=== PATIENT | male | born 1960 | race Caucasian/White ===

== ENCOUNTER 2024-07-30 08:45 | Day surgery (SDC) | payer OTHER, SELFPAY ==
[2024-07-26 12:04] VITALS: BMI 25.0
--- OUTSIDE RECORDS SUMMARY | 2024-07-29 16:27 | XMS_ITS ---
Author Organization [facility] Address [address] [place] [phone] Care Team Providers Care Assistant Project Engineer Name Role Phone JOLENE LIRA, MEGAN Primary Care Provider Curtis Farah Jr [phone] REASON FOR VISIT rescheduled todays appointment Encounters Encounter Location Date Provider Diagnosis [facility] [address] [place] [phone] 04/03/2024 Curtis Murrieta Jr Plan Of Treatment Next Appt Details Provider Name:Curtis cortes Jr, 07/30/2024 10:40:00 AM, [address] [place] [address], [phone], Progress Notes * ALCIRA MERRITTDOB:1960 ( 63 yo M)Acc No.[id number]:04/03/2024 Patient:?ALCIRA MERRITT :1960???Age:63 Y???Sex:Male Address:[address] [place] [address], [place] [address] * true * Date:? Generated for Kevini danita/Pedro/eTransmitting on:?07/29/2024 04:27 PM EDT
--- OUTSIDE RECORDS SUMMARY | 2024-07-29 16:27 | XMS_ITS | Continuity of Care Document ---
Author Name [facility] Organization [facility] Care Team Providers Care Fundraising Assistant Name Role Phone [facility] Unavailable Unavailable Problems Combined list of problems from Department of Defense and Veterans Affairs facilities. It does not include entries that were removed or entered in error. Problem Status Onset Date Problem Type Date of Resolution Comments Source HTN - Hypertension ([facility] [id number]) Active Condition [facility] [place] [facility] Diagnosis: ICD-10-CM I10 Essential (primary) hypertension Active Diagnosis [facility] Diagnosis: ICD-10-CM Z13.6 Encounter for screening for cardiovascular disorders Active Diagnosis [facility] Medications Combined list of outpatient medications from Department of Defense and Veterans Affairs facilities.Medications provided include 1) outpatient medications from the last 15 months, and 2) patient-reported medications. Medication Details Route Status Patient Instructions Prescription Expires Prescription Number Last Dispense Date Ordering Provider Order Date Order Qty Source TAMSULOSIN HCL 0.4MG CAP TAKE ONE CAPSULE BY MOUTH ONCE DAILY FOR ENLARGED PROSTATE ORAL 02/14/2024 [id number] Noel FERNÁNDEZ 2023 90 IELD Immunizations Combined list of available immunizations from the Department of Defense and Veterans Affairs facilities. Immunization Series Date Given Administered By Site Reaction Lot Number CVX Code Drug Mid Level Java Developer Status Comments Source TDAP 2023 HUMBERTO RAMIREZ RIGHT DELTO ID [id number] complet ed IELD Vital Signs Combined list of inpatient and outpatient Vital Signs from Department of Defense and Veterans Affairs, ranging from 12 months to all on record, depending upon the facility. Vital Sign Value Date Comments Source SYSTOLIC BLOOD PRESSURE 167 11/29/19 24 15:17:00 [facility] [place] [facility] DIASTOLIC BLOOD PRESSURE 95 024 15:17:00 [facility] [place] [facility] PULSE 52 11/29/2023 15:17:00 [facility] [place] [facility] SYSTOLIC BLOOD PRESSURE 160 11/16/19 24 03:30:00 [facility] DIASTOLIC BLOOD PRESSURE 68 2 024 03:30:00 [facility] PULSE OXIMETRY 95 11/16/2023 03:30:00 [facility] WEIGHT 173 11/16/2023 03:30:00 [facility] BMI 26 kg/m2 11/16/2023 03:30:00 [facility] PAIN 1 11/16/2023 03:30:00 [facility] HEIGHT 69 11/16/2023 03:30:00 [facility] TEMPERATURE 98 11/16/2023 03:30:00 [facility] PULSE 62 11/16/2023 03:30:00 [facility] RESPIRATION 17 11/16/2023 03:30:00 [facility] Encounters Combined list of: 1) Encounters from Department of Veterans Affairs facilities going backup to the last 18 months, not all [place] inpatient encounters are included; 2) Encounters from the Department of [facility] facilities going backup to 280 months. Location Location Details Encounter Type Encounter Number Reason For Visit Attending Provider ADM Date DC Date Status Disposition Source [facility] [place] [facility] Outpatient Encounter [id number] 08/14 [facility] [place] [facility] [place] [facility] Outpatient Encounter [id number] 08/22 [place] [facility] [place] [facility] [facility] Outpatient Encounter [id number] 11/15 [place] [facility] [place] [facility] O/P EST LOW 20 MIN [id number] Diagnos is: ICD-10- CM I10 Essenti al (primar y) hyperte nsion FERNÁNDEZ,DA VID A 11/15 [facility] IELD [facility] ELECTROCAR DIOGRAM REPORT [id number] Diagnos is: ICD-10- CM Z13.6 Encount er for screeni ng for cardiov ascular disorde rs MICHAEL,MALORIE J 11/15 [facility] LD OFF/OP EST AUGUST X REQ PHY/QHP [id number] Diagnos is: ICD-10- CM I10 Essenti al (primar y) hyperte ADRI Carter 11/28 [facility] [place] [facility] Outpatient Encounter [id number] 12/06 [facility] [place] [facility] [facility] [place] [facility] Outpatient Encounter [id number] 07/01 [facility] [place] [facility] [facility] [place] [facility] Outpatient Encounter [id number] 07/18 [facility] [place] [facility] Social History Combined list of available smoking, tobacco, and other social history from Department of Defense and Veterans Affairs facilities. Social History Type Response Date Comment [facility] e Tobacco [facility] FOR[facility] 024 [facility] History of tobacco use PA-TOBACCO QUIT 1 5 YRS OR MORE 11/16/2023 [facility] Plan of Care List of future care activities from Department of Veterans Affairs facilities. Additional future care activities may be listed in the Assessment and Plan section. Date/Time Care Activity Care Activity Detail Facili ty 07/29/2024 AMBULATORY - MEDICINE AMBULATORY - MEDICI [facility] Advance Directives List of completed, amended, or rescinded Advance Directives on record at Department of Veterans Affairs facilities. An actual copy of the Directive is not included. Date Advance Directive Provider Source 08/23/2023 ADVANCE DIRECTIVE KIMANI DOMINGUEZ [facility]
--- OUTSIDE RECORDS SUMMARY | 2024-07-29 16:27 | XMS_ITS ---
Author Name [facility] Organization [facility] [place] [place] Address [address] [place] [address] Care Team Providers Care Multiple Knife Edge Trimmer Operator Name Role Phone MEGAN FERNÁNDEZ Primary Care Provider Unavailabl e Selected Encounter This section includes the information on record at [place] for the Encounter. Date/Time Encounter Type Encounter Description Reason Pro vider Source Jul 29, 2024 12:00 AM Outpatient Encounter EVENT (HISTORICAL) I[facility] Encounter Template Text not used by [place] Plan of Treatment: Future Appointments (+ 6 months) and Future Tests (+/- 45 days) The Plan of Treatment section includes future care activities for the patient from all [place] treatmentfacilities. This section includes future appointments and future orders which are active, pending or scheduled. Future Appointments This section includes appointments that were scheduled to occur 6 months from the date of the Encounter, up to a maximum of 20 appointments. The data comes from all [place] treatment facilities. Appointment Date/Time Appointment Type Appointme nt Facility Name Aug 19, 2024 09:00 AM AMBULATORY - MEDICINE [facility] Dec 05, 2024 02:30 PM AMBULATORY - MEDICINE [facility] Active, Pending, and Scheduled Orders This section includes a listing of several types of active, pending, and scheduled orders, including clinic medications orders, diagnostic test orders, procedure orders and consult orders; where the start date of the order is 45 days before the date of the Encounter or 45 days after the date of theEncounter. The data comes from all [place] treatment facilities. Test Date/Time Test Type Test Details Facility Name Jul 24, 2024 12:00 AM Laboratory - Chemi stry Order MICROALBUMIN CREATININE RATIO PANEL URINE (RANDOM) [facility] Jul 24, 2024 12:00 AM Laboratory - Chemi stry Order URINALYSIS URINE [facility] Jul 24, 2024 12:00 AM Laboratory - Chemi stry Order BASIC METABOLIC PANEL (non-fasting) BLOOD (SST-SERUM) [facility] Jul 24, 2024 12:00 AM Laboratory - Chemi stry Order LIPID PANEL, NON FASTING BLOOD (SST-SERUM) [facility] Jul 24, 2024 12:00 AM Laboratory - Chemi stry Order LIVER FUNCTION BLOOD (SST-SERUM) [facility] Jul 24, 2024 12:00 AM Laboratory - Chemi stry Order CBC AND DIFF (AUTO) BLOOD (LAV-BLOOD) [facility] Jul 24, 2024 12:00 AM Laboratory - Chemi stry Order HEMOGLOBIN A1C PANEL BLOOD (LAV-BLOOD) [facility] Jul 24, 2024 12:00 AM Laboratory - Chemi stry Order TSH BLOOD (SST-SERUM) [facility] Jul 24, 2024 12:00 AM Laboratory - Chemi stry Order PSA BLOOD (SST-SERUM) [facility] Advance Directives: All historical and current Section Date Range: From patient's date of to the date document was created. This section includes ALL of a patient's completed or amended [place] Advance and Rescinded Directives. The entries below indicate that a directive exists for the patient, but an actual copy is not included with this document. The data comes from all [place] facilities. Date Advance Directives Provider Source Aug 23, 2023 ADVANCE DIRECTIVE KIMANI DOMINGUEZ [facility]
--- OUTSIDE RECORDS SUMMARY | 2024-07-29 16:27 | XMS_ITS | Encounter Summary ---
Author Name [facility] [place] Organization [facility] [place] Address [address] [place] [address] Care Team Providers Care Hide Buffer Name Role Phone MEGAN FERNÁNDEZ Primary Care Provider Unavailabl e Selected Encounter This section includes the information on record at [place] for the Encounter. Date/Time Encounter Type Encounter Description Reason Provider Source Jul 29, 2024 03:30 PM Outpatient Encounter PRIMARY CARE/MEDICINE MEGAN FERNÁNDEZ IHE Encounter Template Text not used by [place] Plan of Treatment: Future Appointments (+ 6 months) and Future Tests (+/- 45 days) The Plan of Treatment section includes future care activities for the patient [facility] [place] [facility]. This section includes future appointments and future orders which are active, pending or scheduled. Future Appointments This section includes appointments that were scheduled to occur 6 months from the date of the Encounter, up to a maximum of 20 appointments. The data comes from all [place] treatment facilities. Appointment Date/Time Appointment Type Appointme nt Facility Name Aug 19, 2024 09:00 AM AMBULATORY - MEDICINE [place] [facility] Dec 05, 2024 02:30 PM [facility]AT[facility] Active, Pending, and Scheduled Orders This section includes a listing of several types of active, pending, and scheduled orders, including clinic medications orders, diagnostic test orders, procedure orders and consult orders; where the start date of the order is 45 days before the date of the Encounter or 45 days after the date of theEncounter. The data comes from all [place] treatment facilities. Test Date/Time Test Type Test Details Facility Name Jul 24, 2024 12:00 AM Laboratory - Chemi stry Order MICROALBUMIN CREATININE RATIO PANEL URINE (RANDOM) [facility] Jul 24, 2024 12:00 AM Laboratory - Chemi stry Order URINALYSIS URINE [facility] Jul 24, 2024 12:00 AM Laboratory - Chemi stry Order BASIC METABOLIC PANEL (non-fasting) BLOOD (SST-SERUM) [facility] Jul 24, 2024 12:00 AM Laboratory - Chemi stry Order LIPID PANEL, NON FASTING BLOOD (SST-SERUM) [facility] Jul 24, 2024 12:00 AM Laboratory - Chemi stry Order LIVER FUNCTION BLOOD (SST-SERUM) [facility] Jul 24, 2024 12:00 AM Laboratory - Chemi stry Order CBC AND DIFF (AUTO) BLOOD (LAV-BLOOD) [facility] Jul 24, 2024 12:00 AM Laboratory - Chemi stry Order HEMOGLOBIN A1C PANEL BLOOD (LAV-BLOOD) [facility] Jul 24, 2024 12:00 AM Laboratory - Chemi stry Order TSH BLOOD (SST-SERUM) [facility] Jul 24, 2024 12:00 AM Laboratory - Chemi stry Order PSA BLOOD (SST-SERUM) [facility] Vital Signs: All taken on the encounter date This section contains inpatient and outpatient Vital Signs collected on the date of the Encounter. Date/Time Temperature Pulse Blood Pressure Respiratory Rate SP02 Pain Height Weight Body Mass Index Source Jul 29, 2024 04:01 PM 60 139/78 97 162 24 [facility] Social History: Smoking Status (Most current) and Tobacco Use (All prior to encounter date) This section includes the most current, and the historical, smoking and tobacco- related health factors from the [place] facility where the Encounter took place. Current Smoking Status This section includes the most current smoking, or tobacco-related health factor, from the [place] facility where the Encounter took place. Date/Time Current Smoking Status Comment Facil ity Nov 16, 2023 03:00 PM [facility]-TOBACCO FORMER USER [place] Tobacco Use History This section includes a history of the smoking, or tobacco-related health factors, that were collected on or before the date of the Encounter. The data comes from the [place] facility where the Encounter took place. Date/Time Smoking Status/Tobacco Use Comment F acility Nov 16, 2023 03:00 PM [place]-TOBACCO QUIT 15 YRS OR MORE [place] Advance Directives: All historical and current Section Date Range: From patient's date of to the date document was created. This section includes ALL of a patient's completed or amended [place] Advance and Rescinded Directives. The entries below indicate that a directive exists for the patient, but an actual copy is not included with this document. The data comes from all [place] facilities. Date Advance Directives Provider Source Aug 23, 2023 ADVANCE DIRECTIVE KIMANI DOMINGUEZ [facility] Encounter Notes: All associated encounter notes This section contains the clinical notes associated to the Encounter. Date/Time Encounter Note(s) Provider Source Jul 29, 2024 03:31 PM PREVENTIVE MEDICIN E NURSING NOTE: LOCAL TITLE: CLINICAL REMINDERS/NURSING STANDARD TITLE: PREVENTIVE MEDICINE NURSING NOTE DATE OF NOTE: JUL 29, 2024@15:31 ENTRY DATE: JUL 29, 2024@15:31:17 AUTHOR: ROXANNA ZHENG COSIGNER: URGENCY: STATUS: COMPLETED Advance Directive Screen MH AD: Patient has an Advance Directive on file at this [facility]. No updates are needed at this time. The patient received education about Advance Directives and written notification of his/her rights. Avg Risk Colorectal Cancer Screen: AVERAGE RISK colorectal cancer screening is due based on information available to this clinical reminder CRC screen completed elsewhere and waiting for results. Results expected: Colonoscopy Comment: VET STATED HAVING DONE 07/30/24 AT [facility] Influenza Immunization: Deferral / Refusal The patient declines to receive the recommended dose of seasonal influenza vaccine. Immunization: INFLUENZA, UNSPECIFIED FORMULATION Refusal Reason: PATIENT DECISION Patient refuses all immunization(s) in the FLU group Date Documented: 07/29/24 15:32 COVID-19 Immunization: Refused Moderna Monovalent COVID-19 vaccine Immunization: COVID-19 (MODERNA), MRNA, LNP-S, PF, 50 MCG/0.5 ML (AGES 12+ YEARS) Refusal Reason: PATIENT DECISION Patient refuses all immunization(s) in the COVID-19 group Date Documented: 07/29/24 15:32 Herpes Zoster (Shingles) Vaccine: The patient declines to receive the recommended dose of zoster (shingles) vaccine. Immunization: ZOSTER RECOMBINANT Refusal Reason: PATIENT DECISION Patient refuses all immunization(s) in the ZOSTER group Date Documented: 07/29/24 15:32 === PROVIDER TO ADDRESS Hep C AND REST OF THE REMINDERS== /juanjose/ ROXANNA ZHENG LPN Licensed Practical Nurse Signed: 07/29/2024 15:33 ROXANNA ZHENG [place]
--- OUTSIDE RECORDS SUMMARY | 2024-07-29 16:27 | XMS_ITS | Patient Health Record ---
Author Organization [facility] Address [address] [place] [address] Care Team Providers Care Telecom Coordinator Name Role Phone JOLENE LIRA, MEGAN Primary Care Provider Curtis Farah Jr Unavailable [phone] Allergies No Known Allergies Reason For Referral Referring Provider First Name MEGAN Referring Provider Last Name JOLENE Referred Organization [facility] Referred Provider Curtis Murrieta Jr Referred Address [address] [place] [address],[address],[place], [place],[address],[place] Referred Provider Specialty Gastroentero logy Referral Priority Routine Referring Provider First Name MEGAN Referring Provider Last Name JOLENE Referred Organization [facility] Referred Provider Curtis Murrieta Jr Referred Address [address] [place] [address],[place] [address],[place], [place],[address],[place] Referred Provider Specialty Gastroentero logy General Notes Nancy Ybarra 2024 02:11:46 PM greater thanspoke with pt and notified him that his existing referral will on 07-02-24 and to request a new referral from Dr. Nolan for his procedure with Dr. Murrieta on , Nancy Ybarra 07/17/2024 02:15:14 PM PT NOTIFIED REFERRAL HAS NOT BEEN RECEIVED FOR HIS UPCOMING APPT AND HE STATED HE WILL CALL THEM TO RETRIEVE THIS. Referral Priority Routine Medications Medication SIG (Take, Route, Frequency, Duration) Notes Start Date End Date Status MiraLax (colon prep) 17 GM/SCOOP mixed with Gatorade or Crystal Light Orally begin at 5:00 p.m. the day before the procedure for 1 day 06/20/2024 Active Social History Tobacco Use: Social History Observation Description Date Details (start date - stop date) Never Smoker NA - NA Tobacco Use/Smoking Question Answer Notes Patient is a nonsmoker Alcohol Screen Question Answer Notes Did you have a drink contain ing alcohol in the past year? Yes How often did you have a dri nk containing alcohol in the past year? 4 or more times a week (4 points) How many drinks did you have on a typical day when you were drinking in the past year? 1 or 2 drinks (0 point) Points 4 Interpretation Positive Problems Problem Type SNOMED Code ICD Code Onset Dates Problem Status W/U Status Risk Notes Problem 658877891 Colon cancer screening (Z12.11) Active confirmed Problem 565020851 Encounter for other preprocedural examination (Z01.818) Active confirmed Vital Signs Blood pressure diastolic 11 mm Hg 06/20/2024 Height 69 in 06/20/2024 Blood pressure systolic 111 mm Hg 06/20/2024 Weight 169 lbs 06/20/2024 BMI 24.95 kg/m2 06/20/2024 Encounters Encounter Location Date Provider Diagnosis [facility] [address] [place] [phone] 06/20/2024 Curtis Murrieta Jr Colon cancer screening Z12.11 and Encounter for other preprocedural examination Z01.818 [facility] [address] [place] [phone] 04/03/2024 Curtis Murrieta Jr Assessments Encounter Date Diagnosis (ICD Code) Assessment Notes Treatment Notes Treatment Clinical Notes Section Notes 06/20/2024 Colon cancer screening (ICD-10 - Z12.11) Colonoscopy material was printed We discussed colonoscopy today. We discussed risks and benefits of the procedure today. He understands these and agrees to proceed. This will be scheduled at his convenience. 06/20/2024 Encounter for other preprocedural examination (ICD-10 - Z01.818) We discussed colonoscopy today. We discussed risks and benefits of the procedure today. He understands these and agrees to proceed. This will be scheduled at his convenience. Plan Of Treatment Future Test Test Name Order Date COLONOSCOPY 06/20/2024 Next Appt Details Provider Name:Curtis cortes Jr, 07/30/2024 10:40:00 AM, [address] [place] [address] , [place], [place], [phone], Insurance Providers Payer Name Payer Address Payer Phone Subscriber Number Group Number Insured Name Patient Relationship to Insured Coverage Start Date Coverage End Date [facility] [employer] [address] [place] [id number] ALCIRA MERRITT Self - patient is the insured Medical (General) History Medical History History ICD Code BPH Borderline hypertension Surgical History Surgery Date(Month/Year)
--- OUTSIDE RECORDS SUMMARY | 2024-07-29 16:27 | XMS_ITS ---
Author Organization [facility] Address [address] [place] [address] Care Team Providers Care Candy Wrapping Machine Operator Name Role Phone MEGAN FERNÁNDEZ NP Primary Care Provider Curtis Farah Jr REASON FOR VISIT Patient presents today for a SCREENING COLON Encounters Encounter Location Date Provider Diagnosis [facility] [address] [phone] 04/03/2024 Curtis Murrieta Jr Plan Of Treatment Next Appt Details Provider Name:Curtis cortes Jr, 07/30/2024 10:40:00 AM, [address] [place] [address], [phone], Progress Notes * MERRITTALCIRA MARINDOB:1960 ( 63 yo M)Acc No.[id number]:04/03/2024 Progress Notes Patient:?ALCIRA MERRITT Provider:?Curtis Murrieta MD :1960???Age:63 Y???Sex:Male Johnny e:04/03/2024 Address:[address] [place] [address], [place] [facility] Pcp:MEGAN FERNÁNDEZ NP Subjective: * Chief Complaints: * ???1. Patient presents today for a SCREENING COLON. * Medical History:? Objective: * Vitals:? Assessment: Plan: * Treatment: * * The named appointment provid er may or may not be the originator of this progress note, and it is not deemed complete until electronically signed by the appointment provider. Sign off status: Pending * Provider:?Curtis Murrieta MD Date:?1 06/04/2023 Generated for Miesha samayoa/Pedro/Iraj on:?07/29/2024 04:27 PM EDT
--- OUTSIDE RECORDS SUMMARY | 2024-07-29 16:27 | XMS_ITS ---
Author Organization [facility] Address [address] [place] [id number] Care Team Providers Care Cotton Washer Name Role Phone JOLENE LIRA, MEGAN Primary Care Provider Curtis Farah Jr Unavailable Allergies No Known Allergies REASON FOR VISIT Patient presents today for a SCREENING COLON Medications Medication SIG (Take, Route, Frequency, Duration) [...] Problem Status W/U Status Risk Notes Problem [id number] Colon cancer screening (Z12.11) Active confirmed Problem [id number] Encounter for other preprocedural examination (Z01.818) Active confirmed Vital Signs Blood pressure systolic 111 mm Hg 06/20/19 25 Blood pressure diastolic 11 mm Hg 025 Height 69 in 06/20/2024 Weight 169 lbs 06/20/2024 BMI 24.95 kg/m2 06/20/2024 Encounters Encounter Location Date Provider Diagnosis [facility] [address] [place] [address] 06/20/2024 Curtis Murrieta Jr Colon cancer screening Z12.11 and Encounter for other preprocedural examination Z01.818 Assessments Encounter Date Diagnosis (ICD Code) Assessment [...] scheduled at his convenience. Plan Of Treatment Medication Medication Name Sig Start Date Stop Date Notes MiraLax (colon prep) 17 GM/SCOOP mixed with Gatorade or Crystal Light Orally begin at 5:00 p.m. the day before the procedure for 1 day 06/20/2024 Treatment Notes Assessment Notes Colon cancer screening Colonoscopy mater ial was printed Future Test Test Name Order Date COLONOSCOPY 06/20/2024 Next Appt Details Follow Up: 1 Year, Reason: Provider Name:Curtis cortes Jr, 07/30/2024 10:40:00 AM, [address] [place] [address] , [place], [place], [phone], Progress Notes * ALCIRA MERRITTDOB:1960 ( 63 yo M)Acc No.[id number]:06/20/2024 Progress Notes Patient:?ALCIRA MERRITT Provider:?Curtis Murrieta MD :1960???Age:63 Y???Sex:Male Johnny e:06/20/2024 Address:[address] [place] [address], [address] [id number] Pcp:MEGAN FERNÁNDEZ NP Subjective: * Chief Complaints: * ???1. Patient presents today for a SCREENING COLON. * HPI: ???New symptom(s):? The patient is a pleasant 63-year-old man seen today for his preoperative colonoscopy visit. Previous colonoscopy 10 years ago was negative by the patient's report. He has no complaints of rectal bleeding or change in his bowel movements. Weight and appetite have been stable. * ROS:?General/Constitutional:?Change in appetite?denies.?Fatigue?denies.?ENT:?Patient denies?difficulty swallowing.?Respiratory:?Patient denies?shortness of breath.?Cardiovascular:?Patient denies?chest pain.?Gastrointestinal:?Comments?See HPI for details.?Genitourinary:?Difficulty urinating?denies.?Incontinence?denies.?Musculoskeletal:?Patient denies?muscle aches.?Skin:?Patient denies?pruritis.?Neurologic:?Patient denies?low back pain.?Psychiatric:?Patient denies?mental or physical abuse.? * Medical History:?BPH, Border line hypertension. * Surgical History:?Denies Pas t Surgical History. * Family History:?Father: dece ased.?Mother: .? NO KNOWN HX OF COLON CANCER. * Social History:?Tobacco Use:?Tobacco Use/Smoking?Patient is a?nonsmoker.?Drugs/Alcohol:?Alcohol Screen?Did you have a drink containing alcohol in the past year??Yes,?How often did you have a drink containing alcohol in the past year??4 or more times a week (4 points),?How many drinks did you have on a typical day when you were drinking in the past year??1 or 2 drinks (0 point),?Points?4,?Interpretation?Positive.?Miscellaneous:?Marital status: . 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 * Medications:?None * Allergies:?N.K.D.A. Objective: * Vitals:?Wt:169 lbs, Ht: 69 i n, BMI:24.95 Index, BP:111/11 mm Hg, Ht-cm: 175.26, Wt-k.66. * Examination: ???General Examination: ?GENERAL APPEARANCE:?in no acute distress.?HEAD:?normocephalic.?EYES:?sclera non-icteric.?ORAL CAVITY:?mucosa moist.?NECK/THYROID:?no lymphadenopathy.?SKIN:?anicteric.?HEART:?S1, S2 normal, no murmurs.?LUNGS:?clear to auscultation bilaterally.?CHEST:?normal shape and expansion.?ABDOMEN:?soft, nontender, nondistended, bowel sounds present, no organomegaly .?EXTREMITIES:?no clubbing, cyanosis, or edema.?PSYCH:?cognitive function intact.? Assessment: * Assessment: 1.?Encounter for other prepr ocedural examination - Z01.818 (Primary)?2.?Colon cancer screening - Z12.11? We discussed colonoscopy tokelsi jack. We discussed risks and benefits of the procedure today. He understands these and agrees to proceed. This will be scheduled at his convenience. Plan: * Treatment: Notes: Colonoscopy material was printed?? * Procedure Codes:?3017F COLOR ECTAL CA SCREEN DOC REV, G9903 Pt scrn tbco id as non user, G9745 DOC RSN FOR NOT SCREEN/REC F/U HBP * Follow Up:?1 Year * * Sign off status: Completed true * Provider:?Curtis Murrieta MD Date:?0 06/20/2024 Generated for Printi ng/Faxing/eTransmitting on:?07/29/2024 04:27 PM EDT History and Physical Notes * HPI (History of Present Illness) Category Sub-Category Detail Notes Category Not es New symptom(s) The patient i s a pleasant 63-year-old man seen today for his preoperative colonoscopy visit. Previous colonoscopy 10 years ago was negative by the patient's report. He has no complaints of rectal bleeding or change in his bowel movements. Weight and appetite have been stable Examination Category Sub-Category Detail Notes Category Not es General Examination GENERAL APPEARANCE: in no acute di stress HEAD: normocephalic EYES: sclera non-icteric NECK/THYROID: no lymphadenopathy HEART: S1, S2 normal, no mu rmurs CHEST: normal shape and exp ansion LUNGS: clear to auscultatio n bilaterally ABDOMEN: soft, nontender, non distended, bowel sounds present, no organomegaly SKIN: anicteric EXTREMITIES: no clubbing, cyanosi s, or edema PSYCH: cognitive function i ntact ORAL CAVITY: mucosa moist
[2024-07-30] VITALS (7 sets, daily range): BP systolic 80–136; BP diastolic 42–96; PULSE 49–81; RESP 12–18; TEMP 36.3–36.6; O2SAT 96–98; BMI 23.3
--- NOTE | 2024-07-30 09:13 | P.CONAN_ITS ---
[facility] Past Medical History Medical History Borderline hypertension BPH (benign prostatic hyperplasia) Surgical History Surgical History Hx of colonoscopy (~2014) History of Problems with Anesthesia: No Social History Social History Advance Directives: No Advance Directives Information Provided: Yes Meds Allergies Allergy/AdvReac Type Severity Reaction Status Date / Time No Known Allergies Allergy Verified 07/30/24 09:16 Home Medications ?Medication ?Instructions ?Recorded ?Confirmed ?Last Taken ?Type No Known Home Meds 07/26/24 07/26/24 Unknown History Exam Height,Weight and Vital Signs: Height 5 ft 9 in Weight 76.657 kg Airway Mallampati Class: II TM Dist: >3cm Neck ROM: Full Denture: Upper Loose/Missing/Broken Teeth: Yes and Upper Heart: RRR Lungs: CTA Assessment and Plan Assessment Anesthesia Assessment: Anesthesia Plan Discussed and Chart Reviewed Final Anesthetic Review History of Problems with Anesthesia: No NPO: Yes ASA Class: II Final Preanesthetic Review: Meds/Allgs Chart Reviewed, Consent Obtained/Reviewed and Anes Risks/Benef Reviewed Patient Risk: Low Procedure Risk: Low Anesthetic Plan Anesthetic Plan: MAC: Disposition: Standard PACU
--- NOTE | 2024-07-30 09:42 | MHC.SHP ---
Pre-Procedural Eval Section A - 24 Hr Update-Section A only Date of Service: 07/30/24 Section B - Complete if H&P > 30 days Chief Complaint: screening Details of Present Illness: see H&P no changes Relevant Family History (Specify if Yes): No Relevant Social History: None Present Medications: None Medical History: No relevant PMH History of Previous Operations: No relevant previous surgery Allergies: Allergies Allergy/AdvReac Type Severity Reaction Status Date / Time No Known Allergies Allergy Verified 07/30/24 09:16 Review of Systems Sugical H&P ROS: Negative: Constitution, Cardiovascular, Respiratory, Neurological, Psychiatric, Hem-Onc, Allergic/Immunologic, Gastrointestinal, Genitourinary, Musculoskeletal, Integumentary, Endocrine and Eyes/Ears/Nose/Throat Exam Surgical H&P Exam: Normal: HEENT, Normal: Heart, Normal: Lungs, Normal: Extremities, Normal: Abdomen, Normal: Skin and Normal: Neurological Plan Diagnosis/Plan: Unchanged I have reviewed the history and physical and performed a pertinent physical examination on my patient. No changes have occurred unless specified. Time Spent With Patient Time: Total time managing care of this patient today ____ minutes.
--- NOTE | 2024-07-30 11:46 | OP_ITS ---
DATE OF SERVICE: 07/30/2024 SURGEON: Curtis Murrieta MD INDICATIONS: Colon cancer screening. PREOPERATIVE DIAGNOSIS: POSTOPERATIVE DIAGNOSIS: PROCEDURE PERFORMED: Colonoscopy to the terminal ilium. ESTIMATED BLOOD LOSS: COMPLICATIONS: ANESTHESIA: Monitored anesthesia care. ASSISTANTS: SPECIMENS: DESCRIPTION OF PROCEDURE: A history and physical was performed. The risks and benefits of the procedure were explained to the patient, and informed consent was obtained. The patient was placed in the left lateral decubitus position. A digital rectal exam was performed and was found to be normal. The Olympus pediatric video colonoscope was introduced into the rectum and advanced to the cecum. The cecum was identified by transillumination, palpation, and identification of ileocecal valve. Examination was performed. The scope was removed. He tolerated the procedure well and was returned to the recovery area in stable condition. FINDINGS: The terminal ileum was examined and appeared normal. The visualized colonic mucosa was normal. The quality of the prep was good. No polyps were identified. There was mild sigmoid diverticulosis. Retroflexed examination showed some moderate-sized internal hemorrhoids. IMPRESSION: Normal colonoscopy. RECOMMENDATION: 1. Follow up as needed. 2. Repeat colonoscopy is recommended in 10 years for average-risk individuals. MD JIHAN Jackson/JELENA / [id number]
== END 2024-07-30 11:11 | disposition home or self-care (01) ==
PROVIDERS: PCP Hospitalist; Visit Provider Internal Medicine Gastroenterology
PROC: 0DJD8ZZ Inspection of Lower Intestinal Tract, Via Natural or Artificial Opening Endoscopic (ICD-10-PCS; CPT 45378; principal; 2024-07-30 10:40)
DX: Z12.11 Encounter for screening for malignant neoplasm of colon (principal); K57.30 Diverticulosis of large intestine without perforation or abscess without bleeding; K64.8 Other hemorrhoids; R03.0 Elevated blood-pressure reading, without diagnosis of hypertension
CPT/HCPCS: 45378; J2003; J2704